=== PATIENT | female | born 1970 | race Caucasian/White ===

== ENCOUNTER 2017-06-23 15:14 | Emergency (ER) | payer OTHER, BC ==
[~2017-06-23] VITALS: Ht 182.9 cm; Wt 124.4 kg
[~2017-06-23 15:14] MED LIST: CIPR-255 PO; MISCCAP80 PO; MULT-506 PO; PSYL55.43 PO
[2017-06-23 15:30] VITALS: TEMP 36.9; Ht 182.9 cm; Wt 124.4 kg
[2017-06-23] MEDS ORDERED: ESCI10TA17 PO (16:49)
[2017-06-23] MEDS ORDERED: ACETAMINOPHEN 500 MG TAB PO STA (17:16)
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
[2017-06-23] MEDS ORDERED: OPTIRAY 320 IV PRN (17:30)
[2017-06-23 17:37] LABS: BASO % 0.2 %; BASO ABS # 0.03 K/uL (0-0.2); EOS % 1.2 %; EOS ABS # 0.16 K/uL (0-0.5); HEMATOCRIT 42.4 % (37-47); HEMOGLOBIN 14.2 g/dL (12.0-16.0); IG# 0.05 K/uL (0.00-0.02); LYMPH % 11.7 %; LYMPH ABS # 1.54 K/uL (1.2-3.4); MEAN CELL VOLUME 86.5 fL (80-100); MEAN CORPUSCULAR HGB CONC 33.5 g/dl (32-36); MEAN PLATELET VOLUME 10.1 fL (7.4-10.4); MONO % 5.5 %; MONO ABS # 0.73 K/uL (0.11-0.59); NEUT ABS # 10.69 K/uL (1.4-6.5); PLATELET COUNT 349 K/uL (130-400); RED CELL DISTRIBUTION WIDTH SD 41.3 fL (36.4-46.3)
[2017-06-23 18:04] LABS: CALCIUM 8.7 mg/dl (8.5-10.1); CREATININE 0.81 mg/dl (0.60-1.20); POTASSIUM 3.7 mmol/L (3.5-5.1)
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
[2017-06-23] MEDS ORDERED: CYCL10TA6 PO (18:58)
[2017-06-23 19:09] VITALS: BP 119/84; PULSE 80; O2SAT 98
== END 2017-06-23 19:11 | disposition home or self-care (01) ==
LOC: C.EDB 15:15 → C.EDD 19:11
DX: S29.9XXA Unspecified injury of thorax, initial encounter (principal); S19.9XXA Unspecified injury of neck, initial encounter; T23.001A Burn of unspecified degree of right hand, unspecified site, initial encounter; V49.40XA Driver injured in collision with unspecified motor vehicles in traffic accident, initial encounter; Y92.410 Unspecified street and highway as the place of occurrence of the external cause